=== PATIENT | female | born 1965 | race Caucasian/White ===

== ENCOUNTER → 2016-04-28 | Day surgery (SDC) | payer BC ==
[~2016-04-28] VITALS: Ht 165.1 cm; Wt 54.0 kg
[~2016-04-28] MED LIST: CALTRATE 600 +1 EAC1 PO; DURAGESIC 25MC25 MCG TOP; FOSAMAX70 MG PO; HYDROCODON-ACE473 ML PO; MAG119MX PO; PRILOSEC20 MG PO; PRINIVIL (ZESTRI5 MG PO; WELLBUTRIN SR200 MG PO; ZOCOR40 MG PO
--- NOTE | ~2016-04-28 | HP ---
PATIENT'S NAME: CORY GOODE [facility] AGE: 50 Y [address] ROOM: [place] [address] LOCATION: [facility] ADMIT DATE: 04/28/2016 History & Physical DISCHARGE DATE: FAMILY PHYSICIAN: Trav Hermosillo MD ATTENDING PHYSICIAN: Vivian Chavira DATE OF SERVICE: REASON FOR CONSULTATION: PEG placement. 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 She has had recent surgery done. The PEG tube is being considered for further feeding. Her diagnosis was made around end of 2015. PAST MEDICAL HISTORY: Significant for excision of ganglion cyst, ORIF of the fibular fracture, left knee arthroscopy, and partial glossectomy. She has a problem with the nonhealing fracture in 2014. CURRENT MEDICATIONS: See attached list. FAMILY HISTORY: Positive for myocardial infarction. Mother had pituitary tumor. REVIEW OF SYSTEMS: Unremarkable except above. PHYSICAL EXAMINATION: GENERAL: She is alert, awake, and appears to be in acute distress. HEENT: She does have significant swelling of the oral mucosa. CHEST: Clear to auscultation bilaterally. ABDOMEN: Soft and nontender. VITAL SIGNS: Stable and normal. IMPRESSION: The patient with a history of carcinoma of the tongue now for PEG placement. The procedure of PEG was discussed in detail with the patient. All risks, including but not limited to bleeding, perforation of internal viscous, infection, misplaced tube and anesthesia risks were explained in detail. All questions were answered. Informed consent was then obtained. PATIENT'S NAME: CORY GOODE [facility] AGE: 50 Y [address] ROOM: [place] [address] LOCATION: [facility] ADMIT DATE: 04/28/2016 History & Physical DISCHARGE DATE: FAMILY PHYSICIAN: Trav Hermosillo MD ATTENDING PHYSICIAN: Vivian Chavira MD KIRSTEN MILLER/hector /[id number] D: [id number] T: [id number] HISTORY & PHYSICAL
== END | disposition disaster alternative care site (69) ==
LOC: GPOC 04-27 17:00 → GEND 08:55 → GPOC 09:00
PROC: 0DH63UZ Insertion of Feeding Device into Stomach, Percutaneous Approach (ICD-10-PCS; principal; 2016-04-28)
DX: C02.2 Malignant neoplasm of ventral surface of tongue (principal); I10 Essential (primary) hypertension; E78.5 Hyperlipidemia, unspecified; F17.210 Nicotine dependence, cigarettes, uncomplicated; Z98.890 Other specified postprocedural states; Z85.810 Personal history of malignant neoplasm of tongue; Z79.899 Other long term (current) drug therapy
CPT/HCPCS: J0690; J2001; J7030